=== PATIENT | female | born 1945 | race Caucasian/White ===

== ENCOUNTER → 2017-09-29 | Outpatient (REF) | payer OTHER ==
[2017-09-29 13:13] LABS: BASO # 0.1 10^3/uL (0.0-0.2); EOS # 0.8 10^3/uL (0.0-0.50); EOS % 12.9 % (0.0-3.0); HEMATOCRIT 43.9 % (36.0-47.0); HEMOGLOBIN 13.5 g/dl (12.0-16.0); IMMATURE GRANULOCYTE % 0.3 % (0-0); LYMPH # 2.1 10^3/uL (1.5-4.5); LYMPH % 34.3 % (24.0-44.0); MEAN CORPUSCULAR HEMOGLOBIN 28.1 pg (27.0-33.0); MEAN CORPUSCULAR HGB CONC 30.8 g/dl (32.0-36.5); MEAN CORPUSCULAR VOLUME 91.5 fl (80.0-96.0); MONO # 0.6 10^3/uL (0.0-0.8); MONO % 9.4 % (0.0-5.0); NEUTROPHILS # 2.6 10^3/uL (1.8-7.7); NEUTROPHILS % 42.1 % (36.0-66.0); PLATELET COUNT, AUTOMATED 435 10^3/uL (150-450); RED CELL DISTRIBUTION WIDTH 15.5 % (11.5-14.5); WHITE BLOOD COUNT 6.2 10^3/uL (4.0-10.0)
[2017-09-29 13:37] LABS: ALBUMIN/GLOBULIN RATIO 1.03 (1.00-1.93); ALKALINE PHOSPHATASE 93 U/L (45-117); ALT/SGPT 16 U/L (12-78); ANION GAP 7 MEQ/L (8-16); AST/SGOT 17 U/L (7-37); BILIRUBIN,TOTAL 0.5 MG/DL (0.2-1.0); BLOOD UREA NITROGEN 14 MG/DL (7-18); CALCIUM LEVEL 9.2 MG/DL (8.8-10.2); CARBON DIOXIDE LEVEL 30 MEQ/L (21-32); CHLORIDE LEVEL 104 MEQ/L (98-107); GLOMERULAR FILTRATION RATE > 60.0 (>39); GLUCOSE, FASTING 89 MG/DL (70-100); POTASSIUM SERUM 4.6 MEQ/L (3.5-5.1); SODIUM LEVEL 141 MEQ/L (136-145); TOTAL PROTEIN 7.9 GM/DL (6.4-8.2)
[2017-09-29 13:48] LABS: ESTIMATED AVERAGE GLUCOSE 134 MG/DL (60-110); HEMOGLOBIN A1c 6.3 %
[2017-09-29 14:19] LABS: TOTAL 25(OH) VITAMIN D 14.2 NG/ML (30.0-100.0)
== END ==
LOC: M LAB REF 12:04
DX: Z13.9 Encounter for screening, unspecified (principal)
CPT/HCPCS: 80053

== ENCOUNTER → 2017-11-10 | Outpatient (CLI) | payer OTHER ==
[2017-11-10 14:44] LABS: BASO # 0.1 10^3/uL (0.0-0.2); BASO % 0.7 % (0.0-1.0); EOS # 0.5 10^3/uL (0.0-0.50); HEMATOCRIT 42.1 % (36.0-47.0); IMMATURE GRANULOCYTE % 0.5 % (0-3.0); LYMPH # 1.9 10^3/uL (1.5-4.5); LYMPH % 19.3 % (24.0-44.0); MEAN CORPUSCULAR HEMOGLOBIN 28.9 pg (27.0-33.0); MEAN CORPUSCULAR HGB CONC 30.9 g/dl (32.0-36.5); MEAN CORPUSCULAR VOLUME 93.6 fl (80.0-96.0); MONO # 1.1 10^3/uL (0.0-0.8); MONO % 10.7 % (0.0-5.0); NEUTROPHILS # 6.4 10^3/uL (1.8-7.7); NEUTROPHILS % 63.8 % (36.0-66.0); PLATELET COUNT, AUTOMATED 439 10^3/uL (150-450); RED CELL DISTRIBUTION WIDTH 14.7 % (11.5-14.5)
[2017-11-10 15:01] LABS: ALBUMIN 3.7 GM/DL (3.2-5.2); ALKALINE PHOSPHATASE 116 U/L (45-117); ALT/SGPT 15 U/L (12-78); ANION GAP 7 MEQ/L (8-16); AST/SGOT 15 U/L (7-37); BILIRUBIN,TOTAL 0.3 MG/DL (0.2-1.0); BLOOD UREA NITROGEN 11 MG/DL (7-18); CALCIUM LEVEL 9.1 MG/DL (8.8-10.2); CARBON DIOXIDE LEVEL 32 MEQ/L (21-32); CHLORIDE LEVEL 103 MEQ/L (98-107); CREATININE FOR GFR 0.51 MG/DL (0.55-1.30); GLOMERULAR FILTRATION RATE > 60.0 (>39); GLUCOSE, FASTING 104 MG/DL (70-100); POTASSIUM SERUM 3.9 MEQ/L (3.5-5.1); SODIUM LEVEL 142 MEQ/L (136-145); TOTAL PROTEIN 7.8 GM/DL (6.4-8.2)
[2017-11-10 15:08] LABS: IMMUNOGLOBULIN G 1090 MG/DL (681-1648)
[2017-11-14 08:08] LABS: C001-IGE PENICILLIN G <0.10 kU/L (Class 0); E001-IGE CAT EPITHELIUM/DANDER <0.10 kU/L (Class 0); E003-IGE HORSE EPITHELIA/DAND <0.10 kU/L (Class 0); E004-IGE COW DANDER <0.10 kU/L (Class 0); E005-IGE DOG DANDER/HAIR/EPITH <0.10 kU/L (Class 0); E006-IgE GUINEA PIG EPITHELIUM <0.10 kU/L (Class 0); E070-IGE GOOSE FEATHERS 2.47 kU/L (Class III); E072-IgE Mouse Urine <0.10 kU/L (Class 0); E073-IgE RAT EPITHELIA <0.10 kU/L (Class 0); E081-IgE Sheep Epithelia <0.10 kU/L (Class 0); E082-IgE Rabbit Epithelia <0.10 kU/L (Class 0); G002-IGE BERMUDA GRASS <0.10 kU/L (Class 0); G006-IGE TIMOTHY GRASS <0.10 kU/L (Class 0); G008-IGE BLUEGRASS, KENTUCKY <0.10 kU/L (Class 0); I206-IGE COCKROACH, AMERICAN <0.10 kU/L (Class 0); K083-IgE COTTONSEED <0.10 kU/L (Class 0); M002-IGE CLADOSPORIUM herbarum <0.10 kU/L (Class 0); M003-IGE ASPERGILLUS FUMIGATUS 3.31 kU/L (Class III); M003-IGE D pteronyssinus 0.11 kU/L (Class 0/I); M006-IGE ALTERNARIA alternata <0.10 kU/L (Class 0); M007-IGE BOTRYTIS cinerea <0.10 kU/L (Class 0); M009-IGE FUSARIUM proliferatum <0.10 kU/L (Class 0); M011-IGE RHIZOPUS nigrica <0.10 kU/L (Class 0); M013-IGE PHOMA BETAE 0.18 kU/L (Class 0/I); M014-IGE EPICOCCUM purpur <0.10 kU/L (Class 0); MOO5-IGE CANDIDA albican <0.10 kU/L (Class 0); T001-IGE MAPLE/BOX ELDER <0.10 kU/L (Class 0); T007-IGE OAK, WHITE <0.10 kU/L (Class 0); T008-IGE ELM, AMERICAN WHITE <0.10 kU/L (Class 0); T014-IGE COTTONWOOD <0.10 kU/L (Class 0); W009-IGE PLANTAIN,ENGLISH <0.10 kU/L (Class 0); W010-IGE LAMB'S QUARTER <0.10 kU/L (Class 0); W014-IGE PIGWEED, ROUGH <0.10 kU/L (Class 0); W016-IgE Rough Marshelder <0.10 kU/L (Class 0); W018-IGE SHEEP SORREL <0.10 kU/L (Class 0)
== END ==
LOC: M SMT 09:37
DX: R06.00 Dyspnea, unspecified (principal); J30.0 Vasomotor rhinitis
CPT/HCPCS: 82785

== ENCOUNTER → 2017-11-17 | Outpatient (CLI) | payer OTHER ==
[~2017-11-17] MED LIST: METHACHOLINE KIT (J7674) INH
== END ==
LOC: M CARPUL 08:22
DX: R06.00 Dyspnea, unspecified (principal)
CPT/HCPCS: J7674

== ENCOUNTER → 2018-01-05 | Outpatient (REF) | payer OTHER ==
[2018-01-05 19:46] LABS: TOTAL 25(OH) VITAMIN D 14.8 NG/ML (30.0-100.0)
[2018-01-07 14:16] LABS: TISSUE TRANSGLUTAMINASE IgA <2 U/mL (0-3)
== END ==
LOC: M LAB REF 18:59
DX: K59.00 Constipation, unspecified (principal); E55.9 Vitamin D deficiency, unspecified
CPT/HCPCS: 84443

== ENCOUNTER 2019-04-24 21:11 | Inpatient (IN) | payer MEDICARE, OTHER ==
[~2019-04-24] VITALS: Ht 154.9 cm; Wt 36.6 kg
[2019-04-24] MEDS ORDERED: VENTAER INH (21:30)
[2019-04-24] MEDS ORDERED: methylPREDNISolone INJ 125 MG/2 ML VIAL (J2930) IV ONE (22:00)
[2019-04-24] MEDS ORDERED: NS 1,000 ML IV ONE (22:00)
[2019-04-24] MEDS ORDERED: IPRATROPIUM 0.5MG/ALBUTEROL 2.5MG INH SOL UD 3ML (DUONEB)(J7620) NEB ONE ×2 (22:00→23:15)
[2019-04-24 22:13] LABS: BASO # 0.1 10^3/uL (0.0-0.2); BASO % 0.4 % (0.0-1.0); EOS # 0.6 10^3/uL (0.0-0.50); EOS % 5.2 % (0.0-3.0); HEMOGLOBIN 14.5 g/dl (12.0-15.5); LYMPH # 2.9 10^3/uL (1.5-4.5); LYMPH % 24.1 % (24.0-44.0); MEAN CORPUSCULAR HEMOGLOBIN 29.2 pg (27.0-33.0); MEAN CORPUSCULAR HGB CONC 30.9 g/dl (32.0-36.5); MEAN CORPUSCULAR VOLUME 94.8 fl (80.0-96.0); MONO # 0.9 10^3/uL (0.0-0.8); NEUTROPHILS # 7.3 10^3/uL (1.8-7.7); PLATELET COUNT, AUTOMATED 295 10^3/uL (150-450); RED BLOOD COUNT 4.96 10^6/uL (4.00-5.40); WHITE BLOOD COUNT 11.8 10^3/uL (4.0-10.0)
[2019-04-24 22:39] LABS: ALBUMIN 3.7 GM/DL (3.2-5.2); ALT/SGPT 18 U/L (12-78); BILIRUBIN,DIRECT 0.1 MG/DL (0.0-0.2); BILIRUBIN,TOTAL 0.3 MG/DL (0.2-1.0); BLOOD UREA NITROGEN 19 MG/DL (7-18); CARBON DIOXIDE LEVEL 32 MEQ/L (21-32); CHLORIDE LEVEL 102 MEQ/L (98-107); CK-MB VALUE MASS < 1.0 NG/ML (<3.6); CPK CREATINE PHOSPHOKINASE 41 U/L (26-192); GLOMERULAR FILTRATION RATE > 60.0 (>39); GLUCOSE, FASTING 97 MG/DL (70-100); MB/CK RELATIVE INDEX 2.44 (< OR =4); NT-PRO BNP 168 PG/ML (<125); POTASSIUM SERUM 4.3 MEQ/L (3.5-5.1); SODIUM LEVEL 140 MEQ/L (136-145); TOTAL PROTEIN 7.7 GM/DL (6.4-8.2); TROPONIN I < 0.02 NG/ML (< 0.10)
[2019-04-24] MEDS ORDERED: ALBUTEROL SULFATE 2.5 MG/0.5 ML INH NEB SOLN NEB ONE ×2 (23:00→23:15)
[2019-04-25] MEDS ORDERED: ACETAMINOPHEN TAB 650MG DOSE (2X325MG) PO PRN (01:00)
[2019-04-25] MEDS ORDERED: IPRATROPIUM 0.5MG/ALBUTEROL 2.5MG INH SOL UD 3ML (DUONEB)(J7620) NEB PRN (01:15)
[2019-04-25 02:30] VITALS: BP 121/63
--- NOTE | 2019-04-25 03:38 | HPEPDOC ---
[facility] Medical History & Physical Date of Admission Apr 25, 2019 Date of Service: Apr 25, 2019 History and Physical CHIEF COMPLAINT: [FATIGUE ] HISTORY OF PRESENT ILLNESS: [This is a 73 yo female with pmx of asthma//?COPD ( due to 2nd hand smoking) who presented to the ED for worsening fatigue for the past month. Patient noticed fatigue with minimal exertion. She noted a dry cough and a bit of sob, but denied fever, chills, chest pain, nausea, vomiting , jaw pain or headache. ] PAST MEDICAL HISTORY: 1. [asthma]. PAST SURGICAL HISTORY: 1. [none]. SOCIAL HISTORY: lives with denied hx of smoking, but said she was exposed 2nd smoking by her dad denied using etoh or drugs FAMILY HISTORY: mother was an alcoholic ALLERGIES: Please see below. HOME MEDICATIONS: Please see below. ROS - all 10 point review of system is negative except for whats listed in HPI Physical exam Gen: NAD, healthy appearing , HEENT: normocephalic, atraumatic, no discharge from ears or nose, no oropharyngeal erythema or exudate, neck is supple, no lymphadenopathy, trachea midline CVS: RRR, normal S1n S2, no murmur, rubs, or gallops, no edema, no jvd Resp: b/l wheezes, no rhonchi, or crackles Abd : soft nontender, normal bowel sounds, no rebound tenderness or guarding MSK: no swelling, or deformity, full range of motion, strength 5/5 Neuro: AOAx3, no confusion, no focal deficit Psych: normal mood and affect, good judgment LABORATORY DATA: See below. IMAGING: [cxr - report pending ] MICROBIOLOGY: Please see below. ASSESSMENT and Plan Asthma//?copd exacerbation iv methylprednisolone 40mg q8h oxygen as needed duoneb prn echo symbicort bid dvt ppx Gi ppx while on steroid full code , from home Vital Signs Vital Signs Date Time Temp Pulse Resp B/P (MAP) Pulse Ox O2 Delivery O2 Flow Rate FiO2 04/24/19 23:51 101 18 142/64 (90) 92 Nasal Cannula 3.0 04/24/19 21:12 99.3 Laboratory Data Labs 24H Laboratory Tests 2 04/24/19 22:02: Immature Granulocyte % (Auto) 0.3, White Blood Count 11.8H, Red Blood Count 4.96, Hemoglobin 14.5, Hematocrit 47.0, Mean Corpuscular Volume 94.8, Mean Corpuscular Hemoglobin 29.2, Mean Corpuscular Hemoglobin Concent 30.9L, Red Cell Distribution Width 14.6H, Platelet Count 295, Neutrophils (%) (Auto) 62.0, Lymphocytes (%) (Auto) 24.1, Monocytes (%) (Auto) 8.0H, Eosinophils (%) (Auto) 5.2H, Basophils (%) (Auto) 0.4, Neutrophils # (Auto) 7.3, Lymphocytes # (Auto) 2.9, Monocytes # (Auto) 0.9H, Eosinophils # (Auto) 0.6H, Basophils # (Auto) 0.1, Nucleated Red Blood Cells % (auto) 0.0, Anion Gap 6L, Glomerular Filtration Rate > 60.0, Lactic Acid Level 0.9, Calcium Level 9.0, Aspartate Amino Transf (AST/SGOT) 12, Alanine Aminotransferase (ALT/SGPT) 18, Alkaline Phosphatase 106, Total Bilirubin 0.3, Direct Bilirubin 0.1, Total Creatine Kinase 41, Creatine Kinase MB < 1.0, Creatine Kinase MB Relative Index 2.44, Troponin I < 0.02, FU-Wyf-Q-Type Natriuretic Peptide 168H, Total Protein 7.7, Albumin 3.7, Albumin/Globulin Ratio 0.93L 04/24/19 23:22: POC pH (Misc Panel) 7.273L, POC Base Excess (Misc Panel) -2.0, POC Saturated Percent O2 (Misc) 98, POC pO2 (Misc Panel) 124.0H, POC pCO2 (Misc Panel) 53.2H, POC HCO3 (Misc Panel) 24.6, POC Total CO2 (Misc Panel) 26.0 CBC/BMP Laboratory Tests 04/24/19 22:02 Red Blood Count 4.96, Mean Corpuscular Volume 94.8, Mean Corpuscular Hemoglobin 29.2, Mean Corpuscular Hemoglobin Concent 30.9 L, Red Cell Distribution Width 14.6 H, Neutrophils (%) (Auto) 62.0, Lymphocytes (%) (Auto) 24.1, Monocytes (%) (Auto) 8.0 H, Eosinophils (%) (Auto) 5.2 H, Basophils (%) (Auto) 0.4, Neutrophils # (Auto) 7.3, Lymphocytes # (Auto) 2.9, Monocytes # (Auto) 0.9 H, Eosinophils # (Auto) 0.6 H, Basophils # (Auto) 0.1 Home Medications Scheduled PRN Albuterol Sulfate (Ventolin Hfa) 18 Gm Hfa.aer.ad, 2 PUFF INH Q4-6H PRN for wheezing Allergies Coded Allergies: Penicillins (Verified Allergy, Severe, SHORTNESS OF BREATH, 04/24/19) Quinolones (Verified Allergy, Mild, RASH, 04/24/19) A-FIB/CHADSVASC A-FIB History Current/History of A-Fib/PAF?: No Current PO Anticoag Therapy: No Age/Risk Factor Scoring CHADSVASC: CHADSVASC Response (Comments) Value Age Risk Factor Age 65-74 years old 1 Gender Risk Factor Female 1 Hx of CHF No 0 Hx of HTN No 0 Hx of Stroke/TIA/or VTE No 0 Hx of Diabetes No 0 Hx of Vascular Disease No 0 Total 2 Treatment Treatment ordered: NONE Reason Anticoagulant not given: Not indicated/[id number] JACOB HUTCHINS MD Apr 25, 2019 01:41
[2019-04-25 04:00] VITALS: BP 111/60
[2019-04-25] MEDS: HEPARIN SOD (PORCINE) 5000 UNITS/ML VIAL SC SCH ×3 (05:47→21:45)
[2019-04-25] MEDS: methylPREDNISolone INJ 40 MG/1 ML VIAL (J2920) IV SCH ×3 (05:47→21:45)
[2019-04-25] MEDS: SYMBICORT 80/4.5MCG INHALER 6GM INH SCH ×2 (07:11→19:59)
--- NOTE | 2019-04-25 07:19 | ECGEPIP ---
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
[2019-04-25 07:43] LABS: HEMATOCRIT 42.7 % (36.0-47.0); MEAN CORPUSCULAR HGB CONC 30.4 g/dl (32.0-36.5); MEAN CORPUSCULAR VOLUME 95.1 fl (80.0-96.0); PLATELET COUNT, AUTOMATED 278 10^3/uL (150-450); RED BLOOD COUNT 4.49 10^6/uL (4.00-5.40); WHITE BLOOD COUNT 7.5 10^3/uL (4.0-10.0)
[2019-04-25 07:48] LABS: BLOOD UREA NITROGEN 13 MG/DL (7-18); CALCIUM LEVEL 8.3 MG/DL (8.8-10.2); CARBON DIOXIDE LEVEL 30 MEQ/L (21-32); CHLORIDE LEVEL 108 MEQ/L (98-107); CREATININE FOR GFR 0.55 MG/DL (0.55-1.30); GLOMERULAR FILTRATION RATE > 60.0 (>39); GLUCOSE, FASTING 178 MG/DL (70-100); MAGNESIUM LEVEL 1.9 MG/DL (1.8-2.4); SODIUM LEVEL 141 MEQ/L (136-145)
[2019-04-25 08:00] VITALS: BP 109/59
[2019-04-25] MEDS: DOCUSATE SODIUM 100 MG CAP PO SCH ×2 (09:00→21:45)
--- NOTE | 2019-04-25 10:51 | REP ---
PA and lateral chest: Comparison is 11/10/2017. There is chronic hyperinflation, unchanged. There is chronic interstitial fibrosis, unchanged. These findings are compatible with the history of chronic asthma. There are no acute infiltrates or pleural effusions. There are bilateral nipple artifacts, unchanged. Cardiac size is normal. The dae, mediastinum, skeletal structures are unremarkable. Impression: There are chronic changes compatible with the history of chronic asthma. There are no acute cardiopulmonary findings. Electronically Signed by Carson Hadley MD 04/25/2019 07:58 A
--- NOTE | 2019-04-25 11:52 | IPN ---
DATE OF SERVICE: 04/25/2019 Oneyda is seen in progressive care unit (PCU) admitted with exacerbation of chronic obstructive pulmonary disease (COPD). Apparently does not have a primary care provider (used to go to the residency clinic. The last visit there was 5 years ago in 06/2014. She looks to have severe chronic obstructive pulmonary disease (COPD) with asthma, has history of osteoporosis and DEXA scan from 07/13 which she never got repeated, hiatal hernia. SURGICAL HISTORY: Tubal ligation. Hysterectomy. Cholecystectomy. SOCIAL HISTORY: Nonsmoker. She feels better since admission, less short of breath, near her baseline. PHYSICAL EXAMINATION: Afebrile. Vital signs stable. Oxygen saturation 93% on 1 liter. General appearance: Chronically ill-appearing. No jugular venous distention (JVD). Lungs have decreased breath sounds bilaterally but no wheezing. Heart: Regular rate and rhythm. Abdomen soft, nontender, no peripheral edema. LABS: CBC unremarkable. BMP unremarkable. IMPRESSION: Exacerbation of asthma. PLAN: She is responding well to prescribed therapy. I do not think she needs to be in PCU. I will transfer her to the floor. Will wean off her oxygen. She probably could be discharged tomorrow.
[2019-04-25 12:00] VITALS: BP 110/59
[2019-04-25 16:00] VITALS: BP 110/58
[2019-04-25 20:00] VITALS: BP 110/59
[2019-04-26 04:00] VITALS: BP 96/57
[2019-04-26] MEDS: methylPREDNISolone INJ 40 MG/1 ML VIAL (J2920) IV SCH (06:22)
[2019-04-26] MEDS: HEPARIN SOD (PORCINE) 5000 UNITS/ML VIAL SC SCH (06:22)
[2019-04-26] MEDS: SYMBICORT 80/4.5MCG INHALER 6GM INH SCH (07:39)
[2019-04-26 08:00] VITALS: BP 110/55
[2019-04-26] MEDS: DOCUSATE SODIUM 100 MG CAP PO SCH (09:08)
[2019-04-26] MEDS ORDERED: SYMB80INH INH (11:10)
[2019-04-26] MEDS ORDERED: PRED20TA PO (11:10)
--- NOTE | 2019-04-26 13:33 | DS.PDOC ---
Discharge Summary General Date of Admission Apr 25, 2019 at 01:00 Date of Discharge 04/26/19 Discharge Summary PROCEDURES PERFORMED DURING STAY: None. ADMITTING DIAGNOSES: 1. Exacerbation of COPD. DISCHARGE DIAGNOSES: 1. Exacerbation of COPD. COMPLICATIONS/CHIEF COMPLAINT: Copd Exacerbation;Hypoxia. HISTORY OF PRESENT ILLNESS: This is a 73 yo female with pmx of asthma//?COPD (due to 2nd hand smoking) who presented to the ED for worsening fatigue for the past month. Patient noticed fatigue with minimal exertion. She noted a dry cough and a bit of sob, but denied fever, chills, chest pain, nausea, vomiting , jaw pain or headache. HOSPITAL COURSE: Patient was admitted with the diagnosis of exacerbation of the COPD. Patient was started on nebulizer treatment along with Solu-Medrol IV. Patient was also given oxygen supplementation. Patient responded to's to the above treatment very well. On examination today, lungs are clear to A&P. No rales, rhonchi, wheezing. Patient also walked around the unit without oxygen and her pulse ox remained more than 90%. Patient can be discharged home on by mouth prednisone and continue her nebulizer treatment as an outpatient. Patient was advised to follow with her PCP in one week. DISCHARGE MEDICATIONS: Please see below. ALLERGIES: Please see below. PHYSICAL EXAMINATION ON DISCHARGE: VITAL SIGNS: Please see below. GENERAL: Within normal limits HEENT: PERRLA NECK: Supple CARDIOVASCULAR EXAMINATION: S1, S2, regular RESPIRATORY EXAMINATION: Clear to A&P ABDOMINAL EXAMINATION: Benign EXTREMITIES: No clubbing, cyanosis, edema SKIN: Within normal limits NEUROLOGICAL EXAMINATION: . No focal motor sensory deficit PSYCHIATRIC EXAMINATION: Normal LABORATORY DATA: Please see below. IMAGING: Chest x-ray:There are chronic changes compatible with the history of ch ronic asthma. There are no acute cardiopulmonary findings. PROGNOSIS: Good ACTIVITY: As tolerated. DIET: As tolerated DISCHARGE PLAN: Follow with PCP in one week DISPOSITION: Home, Self-Care. DISCHARGE INSTRUCTIONS: 1. As per discharge instructions. ITEMS TO FOLLOWUP ON ON OUTPATIENT: 1. Follow with PCP in one week. DISCHARGE CONDITION: Stable. TIME SPENT ON DISCHARGE: 35 minutes. Vital Signs/I&Os Vital Signs Date Time Temp Pulse Resp B/P (MAP) Pulse Ox O2 Delivery O2 Flow Rate FiO2 04/26/19 08:00 97.6 91 20 110/55 (73) 96 1.0 04/24/19 23:51 Nasal Cannula I&O- Last 24 Hours up to 6 AM 04/26/19 05:59 Intake Total 1120 ml Output Total 1400 ml Balance -280 ml Microbiology Microbiology 04/26/19 Gram Stain - Final, Resulted 04/26/19 Sputum Culture, Resulted Pending Discharge Medications Scheduled Budesonide/Formoterol (Symbicort 80-4.5 Mcg Inhaler) 6.9 Gm Hfa.aer.ad, 2 PUFF INH RBID Prednisone (Prednisone) 20 Mg Tablet, 1 TAB PO DAILY Scheduled PRN Albuterol Sulfate (Ventolin Hfa) 18 Gm Hfa.aer.ad, 2 PUFF INH Q4-6H PRN for wheezing, (Reported) Allergies Coded Allergies: Penicillins (Verified Allergy, Severe, SHORTNESS OF BREATH, 04/24/19) Quinolones (Verified Allergy, Mild, RASH, 04/24/19) VASQUEZ HUI MD Apr 26, 2019 13:33
[2019-04-26] MEDS ORDERED: ALBU83IN NEB (13:41)
--- NOTE | 2019-04-27 06:57 | ECHO ---
DATE OF PROCEDURE: 04/26/2019 DATE OF : 1945 AGE: 73 GENDER: Female. HEIGHT: 61 inches. WEIGHT: 92 pounds. BODY SURFACE AREA: 1.29 meters squared LOCATION: Inpatient PCU, room 3219. REFERRING PHYSICIAN: Merry Liang MD INDICATION: Dyspnea. MEASUREMENTS 2-D MEASUREMENTS: RV - 3.6 cm LV - 4.3 cm Septum 0.7 cm Posterior wall 0.7 cm Aortic root 3.5 cm LA - 2.9 cm LVEF 65% DOPPLER MEASUREMENTS: AV - 1.8 m/s LVOT - 0.8 m/s LVOT - 2.0 cm MV - 90, A 47, E/E ratio 1.9 Early mitral deceleration time 144 ms E prime 8, A prime 11, E/E prime ratio 11.3 PCWP - 13.8 mmHg PV - 0.8 m/s Pulmonary artery acceleration time 90 ms PASP - 41 mmHg IVC - 2.1 cm COMMENTS: Sinus rhythm without intraventricular conduction disturbance. Technically difficult study in light of the patient's body habitus but diagnostically useful information was still obtained. M-mode and two-dimensional echocardiography was performed with pulsed, continuous wave, color flow and tissue Doppler studies. Normal left ventricular size, wall thickness and hyperkinetic wall motion. Normal left atrial size and Doppler assessment of LV diastolic function and current estimated mean left atrial pressure. Normal right heart chamber sizes and motion with Doppler evidence of moderate pulmonary hypertension. Borderline dilated inferior vena cava with reduced respiratory collapse suggestive an elevated central venous pressure. Mild aortic valvular sclerosis without stenosis and very mild insufficiency. Aortic root size at least mildly dilated given the patient's body habitus. Normal appearing mitral valvular apparatus and leaflet excursion with no more than very mild insufficiency. Normal appearing tricuspid valve with mild insufficiency. No apparent intracardiac mass or pericardial effusion.
== END 2019-04-26 13:05 | disposition home or self-care (01) | DRG 192 ==
LOC: M ED 21:11 → M ED INP 04-25 01:00 → M PCU 04-25 02:25
PROVIDERS: ADMIT Internal Medicine; ATTEND Internal Medicine
DX: J44.1 Chronic obstructive pulmonary disease with (acute) exacerbation (principal); Z88.0 Allergy status to penicillin; Z88.8 Allergy status to other drugs, medicaments and biological substances; M81.0 Age-related osteoporosis without current pathological fracture; K44.9 Diaphragmatic hernia without obstruction or gangrene

== ENCOUNTER 2023-10-30 18:24 | Inpatient (IN) | payer MEDICARE ==
[~2023-10-30] VITALS: Ht 147.3 cm; Wt 36.7 kg
[~2023-10-30 18:24] MED LIST changes: +ALBU2.5V10 NEB; -METHACHOLINE KIT (J7674) INH; +PRED20TA PO; +SYMB80INH INH; +VENTAER INH
[2023-10-30 19:15] LABS: BASO # 0.1 10^3/uL (0.0-0.2); BASO % 0.5 % (0.0-1.0); EOS # 0.1 10^3/uL (0.0-0.5); EOS % 0.7 % (0.0-3.0); HEMATOCRIT 60.7 % (36.0-47.0); HEMOGLOBIN 18.6 g/dl (12.0-15.5); LYMPH % 9.7 % (24.0-44.0); MEAN CORPUSCULAR HEMOGLOBIN 30.4 pg (27.0-33.0); MEAN CORPUSCULAR HGB CONC 30.6 g/dl (32.0-36.5); MEAN CORPUSCULAR VOLUME 99.2 fl (80.0-96.0); MONO # 0.8 10^3/uL (0.0-0.8); MONO % 7.6 % (2.0-8.0); NEUTROPHILS # 8.3 10^3/uL (1.5-8.5); NEUTROPHILS % 80.8 % (36.0-66.0); PLATELET COUNT, AUTOMATED 252 10^3/uL (150-450); RED BLOOD COUNT 6.12 10^6/uL (4.00-5.40); WHITE BLOOD COUNT 10.3 10^3/uL (4.0-10.0)
[2023-10-30 19:16] LABS: ABG BASE EXCESS 4.4 (-2.0-2.0); ABG HCO3 33.4 MMOL/L (22.0-26.0); ABG O2 SATURATION 95.9 % (95.0-99.0); ABG PARTIAL PRESSURE O2 84.9 mmHg (75.0-100.0); ABG STANDARD HCO3 28.3 MMOL/L. (22.0-26.0); ABG TOTAL CO2 35.4 MMOL/L (23.0-31.0); ABG pH (ARTERIAL) 7.325 UNITS (7.350-7.450)
[2023-10-30 19:20] LABS: ABG PARTIAL PRESSURE CO2 65.6 mmHg (35.0-45.0)
[2023-10-30 19:28] LABS: INR 1.06; PROTHROMBIN TIME 13.5 SECONDS (12.5-14.5)
[2023-10-30 19:42] LABS: ALBUMIN 3.4 G/DL (3.2-5.2); ALKALINE PHOSPHATASE 100 U/L (46-116); ALT/SGPT 23 U/L (7.0-40); AST/SGOT 21 U/L (<34); BILIRUBIN,DIRECT 0.2 MG/DL (<0.4); BILIRUBIN,TOTAL 0.8 MG/DL (0.3-1.2); BLOOD UREA NITROGEN 16 MG/DL (9-23); CALCIUM LEVEL 8.9 MG/DL (8.3-10.6); CARBON DIOXIDE LEVEL 36 MMOL/L (20-31); CHLORIDE LEVEL 102 MMOL/L (98-107); GLOMERULAR FILTRATION RATE > 60.0 (>39); GLUCOSE, FASTING 130 MG/DL (74-106); POTASSIUM SERUM 4.3 MMOL/L (3.5-5.1); SODIUM LEVEL 141 MMOL/L (136-145); TOTAL PROTEIN 6.7 G/DL (5.7-8.2)
[2023-10-30 19:45] LABS: THYROID STIMULATING HORMONE 5.657 uIU/ML (0.55-4.78)
[2023-10-30 19:46] LABS: CPK CREATINE PHOSPHOKINASE 65 U/L (34-145); MB/CK RELATIVE INDEX 4.61 (< OR =4)
[2023-10-30] MEDS ORDERED: ISOVUE-370 76% 100ML VIAL As Ordered ONE (19:54)
[2023-10-30] MEDS: IPRATROPIUM 0.5MG/ALBUTEROL 2.5MG INH SOL UD 3ML (DUONEB) NEB ONE (20:11)
[2023-10-30] MEDS ORDERED: HOME MED LIST COMPLETE! XX SCH (23:40)
[2023-10-31] VITALS (24 sets, daily range): BP systolic 120–136; BP diastolic 68–80; TEMP 97.1–98.3; O2SAT 77–95
[2023-10-31] MEDS: methylPREDNISolone 125MG 2ML VIAL IV ONE (00:01)
[2023-10-31] MEDS ORDERED: ALBUTEROL SULFATE 2.5MG/0.5ML INH NEB SOLN NEB PRN (01:15)
[2023-10-31] MEDS ORDERED: ONDANSETRON 4MG ORAL DISINTEGRATING TAB PO PRN (01:15)
[2023-10-31] MEDS: IPRATROPIUM 0.5MG/ALBUTEROL 2.5MG INH SOL UD 3ML (DUONEB) NEB SCH (02:37)
[2023-10-31] MEDS: NS 500 ML IV ONE (02:43)
[2023-10-31] MEDS: DOXYCYCLINE HYCLATE 100MG TABLET PO ONE (02:43)
[2023-10-31 05:58] LABS: ABG BASE EXCESS 2.6 (-2.0-2.0); ABG HCO3 31.3 MMOL/L (22.0-26.0); ABG O2 SATURATION 94.3 % (95.0-99.0); ABG PARTIAL PRESSURE O2 70.6 mmHg (75.0-100.0); ABG STANDARD HCO3 26.6 MMOL/L. (22.0-26.0); ABG TOTAL CO2 33.2 MMOL/L (23.0-31.0); ABG pH (ARTERIAL) 7.313 UNITS (7.350-7.450)
[2023-10-31 06:03] LABS: ABG PARTIAL PRESSURE CO2 63.1 mmHg (35.0-45.0)
[2023-10-31 06:46] LABS: BLOOD UREA NITROGEN 12 MG/DL (9-23); CALCIUM LEVEL 8.8 MG/DL (8.3-10.6); CARBON DIOXIDE LEVEL 33 MMOL/L (20-31); CHLORIDE LEVEL 103 MMOL/L (98-107); CREATININE FOR GFR 0.38 MG/DL (0.55-1.30); GLOMERULAR FILTRATION RATE > 60.0 (>39); GLUCOSE, FASTING 162 MG/DL (74-106); POTASSIUM SERUM 4.3 MMOL/L (3.5-5.1); SODIUM LEVEL 141 MMOL/L (136-145)
[2023-10-31 06:47] LABS: FREE T4 0.94 NG/DL (0.89-1.76)
[2023-10-31 06:48] LABS: URIC ACID 4.2 MG/DL (3.1-7.8)
[2023-10-31 06:53] LABS: HEMOGLOBIN 18.3 g/dl (12.0-15.5)
[2023-10-31 06:54] LABS: HEMATOCRIT 58.9 % (36.0-47.0)
[2023-10-31] MEDS: methylPREDNISolone 40MG 1ML VIAL IV SCH (08:32)
[2023-10-31] MEDS: HEPARIN SOD (PORCINE) 5000UNITS/ML 1ML VIAL/SYRINGE SC SCH (08:33)
[2023-10-31] MEDS: DOXYCYCLINE HYCLATE 100MG TABLET PO SCH (21:53)
[2023-11-01] VITALS (22 sets, daily range): BP systolic 90–134; BP diastolic 55–80; TEMP 97.6–98.5; O2SAT 85–99
[2023-11-01 01:10] LABS: ABG BASE EXCESS 2.3 (-2.0-2.0); ABG HCO3 32.3 MMOL/L (22.0-26.0); ABG O2 SATURATION 96.6 % (95.0-99.0); ABG PARTIAL PRESSURE O2 91.9 mmHg (75.0-100.0); ABG STANDARD HCO3 26.5 MMOL/L. (22.0-26.0); ABG TOTAL CO2 34.5 MMOL/L (23.0-31.0)
[2023-11-01 01:14] LABS: ABG PARTIAL PRESSURE CO2 73.6 mmHg (35.0-45.0)
[2023-11-01 03:20] LABS: ABG BASE EXCESS 5.9 (-2.0-2.0); ABG HCO3 38.3 MMOL/L (22.0-26.0); ABG O2 SATURATION 98.8 % (95.0-99.0); ABG PARTIAL PRESSURE O2 155.8 mmHg (75.0-100.0); ABG STANDARD HCO3 29.9 MMOL/L. (22.0-26.0); ABG TOTAL CO2 41.3 MMOL/L (23.0-31.0); ABG pH (ARTERIAL) 7.221 UNITS (7.350-7.450)
[2023-11-01 03:21] LABS: ABG PARTIAL PRESSURE CO2 95.6 mmHg (35.0-45.0)
[2023-11-01 05:50] LABS: ABG BASE EXCESS 3.6 (-2.0-2.0); ABG HCO3 34.2 MMOL/L (22.0-26.0); ABG O2 SATURATION 97.8 % (95.0-99.0); ABG STANDARD HCO3 27.7 MMOL/L. (22.0-26.0); ABG TOTAL CO2 36.6 MMOL/L (23.0-31.0); ABG pH (ARTERIAL) 7.252 UNITS (7.350-7.450)
[2023-11-01 05:52] LABS: ABG PARTIAL PRESSURE CO2 79.3 mmHg (35.0-45.0)
[2023-11-01 12:38] LABS: VENOUS BASE EXCESS 4.7 (-2.0-2.0); VENOUS HCO3 32.7 MMOL/L (23.0-27.0); VENOUS O2 SATURATION 99.3 % (60.0-80.0); VENOUS PARTIAL PRESSURE CO2 60.2 mmHg (38.0-50.0); VENOUS PARTIAL PRESSURE O2 191.8 mmHg (30.0-50.0); VENOUS PH 7.353 UNITS (7.330-7.430); VENOUS STANDARD HCO3 28.7 MMOL/L; VENOUS TOTAL CO2 34.6 MMOL/L (24.0-28.0)
[2023-11-01] MEDS: FUROSEMIDE 20MG/2ML VIAL IV ONE (12:52)
[2023-11-02] VITALS (15 sets, daily range): BP systolic 117–130; BP diastolic 60–76; TEMP 97.6–99.2; O2SAT 92–98
[2023-11-02] MEDS: ACETAMINOPHEN TAB 650MG DOSE (2X325MG) PO PRN (08:23)
[2023-11-02 09:08] LABS: BASO % 0.1 % (0.0-1.0); HEMATOCRIT 55.5 % (36.0-47.0); HEMOGLOBIN 16.7 g/dl (12.0-15.5); LYMPH # 0.4 10^3/uL (1.5-5.0); MEAN CORPUSCULAR HEMOGLOBIN 30.3 pg (27.0-33.0); MEAN CORPUSCULAR HGB CONC 30.1 g/dl (32.0-36.5); MEAN CORPUSCULAR VOLUME 100.7 fl (80.0-96.0); MONO # 0.5 10^3/uL (0.0-0.8); MONO % 5.9 % (2.0-8.0); NEUTROPHILS # 8.2 10^3/uL (1.5-8.5); NEUTROPHILS % 89.3 % (36.0-66.0); PLATELET COUNT, AUTOMATED 198 10^3/uL (150-450); RED BLOOD COUNT 5.51 10^6/uL (4.00-5.40); WHITE BLOOD COUNT 9.2 10^3/uL (4.0-10.0)
[2023-11-02 09:25] LABS: BLOOD UREA NITROGEN 28 MG/DL (9-23); CALCIUM LEVEL 8.2 MG/DL (8.3-10.6); CARBON DIOXIDE LEVEL > 40.0 MMOL/L (20-31); CHLORIDE LEVEL 101 MMOL/L (98-107); CREATININE FOR GFR 0.45 MG/DL (0.55-1.30); GLOMERULAR FILTRATION RATE > 60.0 (>39); GLUCOSE, FASTING 146 MG/DL (74-106); MAGNESIUM LEVEL 1.8 MG/DL (1.8-2.4); POTASSIUM SERUM 4.4 MMOL/L (3.5-5.1); SODIUM LEVEL 143 MMOL/L (136-145)
[2023-11-02] MEDS: PERCOCET 5MG/325MG TAB PO PRN (21:08)
[2023-11-03] VITALS (11 sets, daily range): BP systolic 102–129; BP diastolic 56–73; TEMP 97.3–99.6; O2SAT 93–98
[2023-11-03] MEDS ORDERED: HALOPERIDOL 5MG/ML 1ML VIAL As Ordered ONE (00:12)
[2023-11-03] MEDS: HALOPERIDOL 5MG/ML 1ML VIAL IM STA (00:24)
[2023-11-03 07:39] LABS: BASO % 0.1 % (0.0-1.0); HEMATOCRIT 58.7 % (36.0-47.0); HEMOGLOBIN 17.4 g/dl (12.0-15.5); LYMPH # 0.4 10^3/uL (1.5-5.0); LYMPH % 5.7 % (24.0-44.0); MEAN CORPUSCULAR HEMOGLOBIN 30.1 pg (27.0-33.0); MEAN CORPUSCULAR HGB CONC 29.6 g/dl (32.0-36.5); MEAN CORPUSCULAR VOLUME 101.4 fl (80.0-96.0); MONO # 0.4 10^3/uL (0.0-0.8); MONO % 6.3 % (2.0-8.0); NEUTROPHILS # 5.9 10^3/uL (1.5-8.5); NEUTROPHILS % 87.3 % (36.0-66.0); PLATELET COUNT, AUTOMATED 181 10^3/uL (150-450); RED BLOOD COUNT 5.79 10^6/uL (4.00-5.40); WHITE BLOOD COUNT 6.7 10^3/uL (4.0-10.0)
[2023-11-03 07:53] LABS: BLOOD UREA NITROGEN 27 MG/DL (9-23); CALCIUM LEVEL 7.9 MG/DL (8.3-10.6); CARBON DIOXIDE LEVEL 34 MMOL/L (20-31); CHLORIDE LEVEL 101 MMOL/L (98-107); CREATININE FOR GFR 0.35 MG/DL (0.55-1.30); GLOMERULAR FILTRATION RATE > 60.0 (>39); GLUCOSE, FASTING 129 MG/DL (74-106); MAGNESIUM LEVEL 1.8 MG/DL (1.8-2.4); SODIUM LEVEL 141 MMOL/L (136-145)
[2023-11-04] VITALS (11 sets, daily range): BP systolic 114–136; BP diastolic 61–77; TEMP 97.9–98.7; O2SAT 90–100
[2023-11-04 06:26] LABS: BLOOD UREA NITROGEN 24 MG/DL (9-23); CALCIUM LEVEL 7.9 MG/DL (8.3-10.6); CARBON DIOXIDE LEVEL > 40.0 MMOL/L (20-31); CHLORIDE LEVEL 98 MMOL/L (98-107); CREATININE FOR GFR 0.42 MG/DL (0.55-1.30); GLOMERULAR FILTRATION RATE > 60.0 (>39); GLUCOSE, FASTING 82 MG/DL (74-106); MAGNESIUM LEVEL 1.7 MG/DL (1.8-2.4); POTASSIUM SERUM 4.3 MMOL/L (3.5-5.1); SODIUM LEVEL 141 MMOL/L (136-145)
[2023-11-04] MEDS: MAG SULF 1GM/100ML (MAG RUN) 1 GM in IV 1 EA IV SCH (09:04)
[2023-11-04] MEDS: predniSONE 20 MG TAB PO SCH (09:05)
[2023-11-04] MEDS ORDERED: FUROSEMIDE 40MG/4ML VIAL IV ONE (17:20)
[2023-11-05 04:04] VITALS: BP 131/78; TEMP 98.2; O2SAT 93
[2023-11-05 05:34] LABS: HEMOGLOBIN 16.3 g/dl (12.0-15.5); MEAN CORPUSCULAR HEMOGLOBIN 30.2 pg (27.0-33.0); MEAN CORPUSCULAR HGB CONC 30.2 g/dl (32.0-36.5); MEAN CORPUSCULAR VOLUME 100.2 fl (80.0-96.0); PLATELET COUNT, AUTOMATED 165 10^3/uL (150-450); RED BLOOD COUNT 5.39 10^6/uL (4.00-5.40); WHITE BLOOD COUNT 6.7 10^3/uL (4.0-10.0)
[2023-11-05 06:05] LABS: BLOOD UREA NITROGEN 20 MG/DL (9-23); CALCIUM LEVEL 7.8 MG/DL (8.3-10.6); CARBON DIOXIDE LEVEL > 40.0 MMOL/L (20-31); CHLORIDE LEVEL 96 MMOL/L (98-107); CREATININE FOR GFR 0.33 MG/DL (0.55-1.30); GLOMERULAR FILTRATION RATE > 60.0 (>39); GLUCOSE, FASTING 86 MG/DL (74-106); POTASSIUM SERUM 4.4 MMOL/L (3.5-5.1); SODIUM LEVEL 139 MMOL/L (136-145)
[2023-11-05 08:00] VITALS: BP 121/72; TEMP 98; O2SAT 3
[2023-11-05 12:00] VITALS: BP 127/73; TEMP 96.2; O2SAT 95
[2023-11-05 16:00] VITALS: BP 127/70; TEMP 98; O2SAT 98
[2023-11-05 19:59] VITALS: BP 125/70; TEMP 98.2; O2SAT 97
[2023-11-05 23:56] VITALS: BP 127/71; TEMP 98.1; O2SAT 98
[2023-11-06 03:50] VITALS: BP 133/66; TEMP 97.8; O2SAT 98
[2023-11-06 08:00] VITALS: BP 114/58; TEMP 98.6; O2SAT 90
[2023-11-06 12:00] VITALS: BP 123/76; TEMP 98.6; O2SAT 100
[2023-11-06 16:30] VITALS: BP 136/80; TEMP 99.2; O2SAT 95
[2023-11-06 18:45] VITALS: BP 124/75; TEMP 98.6; O2SAT 97
[2023-11-07 01:23] VITALS: BP 150/74; TEMP 98.1; O2SAT 97
[2023-11-07 05:49] VITALS: BP 131/68; TEMP 97.9; O2SAT 98
[2023-11-07 08:38] LABS: BLOOD UREA NITROGEN 18 MG/DL (9-23); CALCIUM LEVEL 8.4 MG/DL (8.3-10.6); CARBON DIOXIDE LEVEL 36 MMOL/L (20-31); CHLORIDE LEVEL 100 MMOL/L (98-107); CREATININE FOR GFR 0.35 MG/DL (0.55-1.30); GLOMERULAR FILTRATION RATE > 60.0 (>39); GLUCOSE, FASTING 110 MG/DL (74-106); POTASSIUM SERUM 5.1 MMOL/L (3.5-5.1); SODIUM LEVEL 140 MMOL/L (136-145)
[2023-11-07] MEDS ORDERED: ALBU8.5H INH (10:09)
[2023-11-07] MEDS ORDERED: LASI20TA3 PO (10:09)
== END 2023-11-07 12:51 | disposition home health service (06) | DRG 562 ==
LOC: M ED 18:24 → M ED INP 10-31 01:15 → M PCU 10-31 06:33 → M ICU 11-01 01:42 → M PCU 11-03 23:55 → M MSPAV 11-06 18:42
PROVIDERS: ADMIT Internal Medicine; ATTEND Internal Medicine
DX: S42.202A Unspecified fracture of upper end of left humerus, initial encounter for closed fracture (principal); I50.33 Acute on chronic diastolic (congestive) heart failure; J96.21 Acute and chronic respiratory failure with hypoxia; J96.22 Acute and chronic respiratory failure with hypercapnia; J98.11 Atelectasis; J90 Pleural effusion, not elsewhere classified; J84.9 Interstitial pulmonary disease, unspecified; E46 Unspecified protein-calorie malnutrition; Z68.1 Body mass index [BMI] 19.9 or less, adult; E87.3 Alkalosis; I27.20 Pulmonary hypertension, unspecified; F03.C0 Unspecified dementia, severe, without behavioral disturbance, psychotic disturbance, mood disturbance, and anxiety; J45.909 Unspecified asthma, uncomplicated; I27.81 Cor pulmonale (chronic); D75.1 Secondary polycythemia; M40.204 Unspecified kyphosis, thoracic region; R91.8 Other nonspecific abnormal finding of lung field; R13.10 Dysphagia, unspecified; Z88.0 Allergy status to penicillin; Z88.8 Allergy status to other drugs, medicaments and biological substances; W18.30XA Fall on same level, unspecified, initial encounter; Y92.009 Unspecified place in unspecified non-institutional (private) residence as the place of occurrence of the external cause

== ENCOUNTER 2023-11-08 21:05 | Inpatient (IN) | payer MEDICARE ==
[~2023-11-08] VITALS: Ht 147.3 cm; Wt 32.6 kg
[~2023-11-08 21:05] MED LIST changes: +ALBU8.5H INH; +LASI20TA3 PO
[2023-11-08] MEDS: IPRATROPIUM 0.5MG/ALBUTEROL 2.5MG INH SOL UD 3ML (DUONEB) NEB PRN (21:27)
[2023-11-08 21:37] LABS: ABG BASE EXCESS 7.2 (-2.0-2.0); ABG HCO3 43.2 MMOL/L (22.0-26.0); ABG O2 SATURATION 94.3 % (95.0-99.0); ABG PARTIAL PRESSURE O2 81.2 mmHg (75.0-100.0); ABG TOTAL CO2 47.1 MMOL/L (23.0-31.0); ABG pH (ARTERIAL) 7.153 UNITS (7.350-7.450)
[2023-11-08 22:53] LABS: VENOUS BASE EXCESS 3.9 (-2.0-2.0); VENOUS HCO3 38.1 MMOL/L (23.0-27.0); VENOUS O2 SATURATION 98.9 % (60.0-80.0); VENOUS PARTIAL PRESSURE CO2 104.2 mmHg (38.0-50.0); VENOUS PARTIAL PRESSURE O2 181.9 mmHg (30.0-50.0); VENOUS PH 7.181 UNITS (7.330-7.430); VENOUS TOTAL CO2 41.3 MMOL/L (24.0-28.0)
[2023-11-08 23:01] LABS: BASO % 0.2 % (0.0-1.0); EOS % 0.1 % (0.0-3.0); HEMATOCRIT 61.9 % (36.0-47.0); HEMOGLOBIN 18.4 g/dl (12.0-15.5); LYMPH # 0.3 10^3/uL (1.5-5.0); LYMPH % 1.6 % (24.0-44.0); MEAN CORPUSCULAR HEMOGLOBIN 30.5 pg (27.0-33.0); MEAN CORPUSCULAR HGB CONC 29.7 g/dl (32.0-36.5); MEAN CORPUSCULAR VOLUME 102.5 fl (80.0-96.0); MONO # 1.6 10^3/uL (0.0-0.8); MONO % 8.8 % (2.0-8.0); NEUTROPHILS # 16.4 10^3/uL (1.5-8.5); NEUTROPHILS % 88.1 % (36.0-66.0); PLATELET COUNT, AUTOMATED 294 10^3/uL (150-450); RED BLOOD COUNT 6.04 10^6/uL (4.00-5.40); WHITE BLOOD COUNT 18.6 10^3/uL (4.0-10.0)
[2023-11-08 23:25] LABS: ABG BASE EXCESS 5.3 (-2.0-2.0); ABG HCO3 37.2 MMOL/L (22.0-26.0); ABG O2 SATURATION 95.6 % (95.0-99.0); ABG PARTIAL PRESSURE CO2 88.5 mmHg (35.0-45.0); ABG PARTIAL PRESSURE O2 82.1 mmHg (75.0-100.0); ABG STANDARD HCO3 29.1 MMOL/L. (22.0-26.0); ABG pH (ARTERIAL) 7.242 UNITS (7.350-7.450)
[2023-11-08] MEDS: methylPREDNISolone 125MG 2ML VIAL IV ONE (23:31)
[2023-11-08 23:42] LABS: ETHYL ALCOHOL (ETHANOL) 0.006 % (0.000-0.010)
[2023-11-08 23:50] LABS: ALBUMIN 3.5 G/DL (3.2-5.2); ALKALINE PHOSPHATASE 118 U/L (46-116); ALT/SGPT 53 U/L (7.0-40); AST/SGOT 53 U/L (<34); BILIRUBIN,DIRECT 0.4 MG/DL (<0.4); BILIRUBIN,TOTAL 1.2 MG/DL (0.3-1.2); BLOOD UREA NITROGEN 24 MG/DL (9-23); CALCIUM LEVEL 8.5 MG/DL (8.3-10.6); CARBON DIOXIDE LEVEL > 40.0 MMOL/L (20-31); CHLORIDE LEVEL 96 MMOL/L (98-107); CK-MB VALUE MASS 3.1 NG/ML (<3.6); CPK CREATINE PHOSPHOKINASE 82 U/L (34-145); CREATININE FOR GFR 0.37 MG/DL (0.55-1.30); GLOMERULAR FILTRATION RATE > 60.0 (>39); GLUCOSE, FASTING 196 MG/DL (74-106); MB/CK RELATIVE INDEX 3.78 (< OR =4); POTASSIUM SERUM 5.1 MMOL/L (3.5-5.1); SODIUM LEVEL 141 MMOL/L (136-145); TOTAL PROTEIN 6.8 G/DL (5.7-8.2)
[2023-11-08] MEDS: CEFTAROLINE FOSAMIL 600 MG in D5W MINI-BAG PLUS 50 ML IV ONE (23:52)
[2023-11-09] VITALS (20 sets, daily range): BP systolic 100–128; BP diastolic 57–72; TEMP 97–99.1; O2SAT 91–97
[2023-11-09] MEDS ORDERED: ISOVUE-370 76% 100ML VIAL As Ordered ONE (00:05)
[2023-11-09] MEDS ORDERED: FURO20TA2 PO (01:38)
[2023-11-09] MEDS ORDERED: HOME MED LIST COMPLETE! XX SCH (01:40)
[2023-11-09 04:13] LABS: ABG BASE EXCESS 9.5 (-2.0-2.0); ABG HCO3 40.8 MMOL/L (22.0-26.0); ABG O2 SATURATION 97.4 % (95.0-99.0); ABG STANDARD HCO3 33.3 MMOL/L. (22.0-26.0); ABG TOTAL CO2 43.4 MMOL/L (23.0-31.0); ABG pH (ARTERIAL) 7.292 UNITS (7.350-7.450)
[2023-11-09 04:14] LABS: ABG PARTIAL PRESSURE CO2 86.3 mmHg (35.0-45.0)
[2023-11-09 04:30] LABS: BASO % 0.1 % (0.0-1.0); HEMATOCRIT 54.3 % (36.0-47.0); LYMPH # 0.1 10^3/uL (1.5-5.0); LYMPH % 0.7 % (24.0-44.0); MEAN CORPUSCULAR HEMOGLOBIN 30.5 pg (27.0-33.0); MEAN CORPUSCULAR HGB CONC 29.8 g/dl (32.0-36.5); MEAN CORPUSCULAR VOLUME 102.3 fl (80.0-96.0); MONO # 0.6 10^3/uL (0.0-0.8); MONO % 3.4 % (2.0-8.0); NEUTROPHILS # 17.4 10^3/uL (1.5-8.5); NEUTROPHILS % 95.1 % (36.0-66.0); RED BLOOD COUNT 5.31 10^6/uL (4.00-5.40); WHITE BLOOD COUNT 18.3 10^3/uL (4.0-10.0)
[2023-11-09 04:32] LABS: HEMOGLOBIN 16.2 g/dl (12.0-15.5); PLATELET COUNT, AUTOMATED 194 10^3/uL (150-450)
[2023-11-09 04:59] LABS: CK-MB VALUE MASS 2.7 NG/ML (<3.6)
[2023-11-09 05:06] LABS: MB/CK RELATIVE INDEX 8.7 (< OR =4)
[2023-11-09 05:29] LABS: ALBUMIN 2.7 G/DL (3.2-5.2); ALKALINE PHOSPHATASE 94 U/L (46-116); ALT/SGPT 38 U/L (7.0-40); AST/SGOT 28 U/L (<34); BILIRUBIN,TOTAL 0.9 MG/DL (0.3-1.2); BLOOD UREA NITROGEN 24 MG/DL (9-23); CALCIUM LEVEL 7.9 MG/DL (8.3-10.6); CARBON DIOXIDE LEVEL > 40.0 MMOL/L (20-31); CHLORIDE LEVEL 100 MMOL/L (98-107); CREATININE FOR GFR 0.32 MG/DL (0.55-1.30); GLOMERULAR FILTRATION RATE > 60.0 (>39); GLUCOSE, FASTING 134 MG/DL (74-106); POTASSIUM SERUM 4.2 MMOL/L (3.5-5.1); SODIUM LEVEL 142 MMOL/L (136-145); TOTAL PROTEIN 5.3 G/DL (5.7-8.2)
[2023-11-09] MEDS: IPRATROPIUM 0.5MG/ALBUTEROL 2.5MG INH SOL UD 3ML (DUONEB) NEB PRN (05:33)
[2023-11-09] MEDS: LR 1,000 ML IV SCH ×2 (05:59→15:31)
[2023-11-09] MEDS: UNRESOLVED CLARIFICATION ENTRY XX STA (09:33)
[2023-11-09] MEDS: ACETAMINOPHEN 650MG SUPP PR ONE (09:33)
[2023-11-09] MEDS: ENOXAPARIN 40MG/0.4ML SYRINGE (J1650 PER 10MG) SC SCH (09:36)
[2023-11-09] MEDS: CEFTAROLINE FOSAMIL 600 MG in D5W MINI-BAG PLUS 50 ML IV SCH (12:57)
[2023-11-09] MEDS: CEFTAROLINE FOSAMIL 400 MG in D5W MINI-BAG PLUS 50 ML IV SCH (23:34)
[2023-11-10] VITALS (27 sets, daily range): BP systolic 95–123; BP diastolic 55–75; TEMP 97.2–98; O2SAT 89–97
[2023-11-10 05:34] LABS: BASO % 0.1 % (0.0-1.0); EOS % 0.2 % (0.0-3.0); HEMOGLOBIN 14.5 g/dl (12.0-15.5); LYMPH # 0.7 10^3/uL (1.5-5.0); LYMPH % 6.9 % (24.0-44.0); MEAN CORPUSCULAR HEMOGLOBIN 30.2 pg (27.0-33.0); MEAN CORPUSCULAR HGB CONC 30.2 g/dl (32.0-36.5); MONO # 1.4 10^3/uL (0.0-0.8); MONO % 12.8 % (2.0-8.0); NEUTROPHILS # 8.6 10^3/uL (1.5-8.5); NEUTROPHILS % 79.5 % (36.0-66.0); PLATELET COUNT, AUTOMATED 202 10^3/uL (150-450); WHITE BLOOD COUNT 10.8 10^3/uL (4.0-10.0)
[2023-11-10 05:56] LABS: BLOOD UREA NITROGEN 19 MG/DL (9-23); CARBON DIOXIDE LEVEL > 40.0 MMOL/L (20-31); CHLORIDE LEVEL 97 MMOL/L (98-107); CREATININE FOR GFR 0.26 MG/DL (0.55-1.30); GLOMERULAR FILTRATION RATE > 60.0 (>39); GLUCOSE, FASTING 76 MG/DL (74-106); MAGNESIUM LEVEL 1.4 MG/DL (1.8-2.4); PHOSPHORUS LEVEL 2.3 MG/DL (2.4-5.1); POTASSIUM SERUM 3.7 MMOL/L (3.5-5.1); SODIUM LEVEL 141 MMOL/L (136-145)
[2023-11-10] MEDS ORDERED: GLUCAGON INJ 1MG VIAL SC PRN (06:00)
[2023-11-10] MEDS: DEXTROSE 50% 50ML SYRINGE IV PRN (06:24)
[2023-11-10] MEDS: MAGNESIUM OXIDE 400MG TAB (MAG-OX) PO ONE (07:00)
[2023-11-10] MEDS: MAG SULF 1GM/100ML (MAG RUN) 1 GM in IV 1 EA IV SCH (09:04)
[2023-11-10] MEDS: ENOXAPARIN 30MG/0.3ML SYRINGE (J1650 PER 10MG) SC SCH (09:05)
[2023-11-10] MEDS: POTASSIUM PHOSPHATE INJ 15 MMOL in D5W 250 ML IV ONE (10:44)
[2023-11-11] VITALS (31 sets, daily range): BP systolic 122–132; BP diastolic 62–72; TEMP 97.2–98.2; O2SAT 85–100
[2023-11-11 05:56] LABS: HEMATOCRIT 48.8 % (36.0-47.0); HEMOGLOBIN 14.9 g/dl (12.0-15.5); MEAN CORPUSCULAR HEMOGLOBIN 30.2 pg (27.0-33.0); MEAN CORPUSCULAR HGB CONC 30.5 g/dl (32.0-36.5); MEAN CORPUSCULAR VOLUME 98.8 fl (80.0-96.0); PLATELET COUNT, AUTOMATED 258 10^3/uL (150-450); RED BLOOD COUNT 4.94 10^6/uL (4.00-5.40); WHITE BLOOD COUNT 9.2 10^3/uL (4.0-10.0)
[2023-11-11 06:24] LABS: BLOOD UREA NITROGEN 13 MG/DL (9-23); CALCIUM LEVEL 7.5 MG/DL (8.3-10.6); CARBON DIOXIDE LEVEL > 40.0 MMOL/L (20-31); CHLORIDE LEVEL 100 MMOL/L (98-107); CREATININE FOR GFR 0.28 MG/DL (0.55-1.30); GLOMERULAR FILTRATION RATE > 60.0 (>39); GLUCOSE, FASTING 92 MG/DL (74-106); MAGNESIUM LEVEL 1.8 MG/DL (1.8-2.4); PHOSPHORUS LEVEL 2.4 MG/DL (2.4-5.1); SODIUM LEVEL 143 MMOL/L (136-145)
[2023-11-11 08:51] LABS: ABG HCO3 41.4 MMOL/L (22.0-26.0); ABG O2 SATURATION 90.7 % (95.0-99.0); ABG PARTIAL PRESSURE O2 57.6 mmHg (75.0-100.0); ABG STANDARD HCO3 35.6 MMOL/L. (22.0-26.0); ABG TOTAL CO2 43.7 MMOL/L (23.0-31.0); ABG pH (ARTERIAL) 7.369 UNITS (7.350-7.450)
[2023-11-11 08:57] LABS: ABG PARTIAL PRESSURE CO2 73.5 mmHg (35.0-45.0)
[2023-11-11] MEDS: ACETAMINOPHEN TAB 650MG DOSE (2X325MG) PO PRN (09:32)
[2023-11-12] VITALS: BP 118/68; TEMP 98; O2SAT 92; O2SAT 98
[2023-11-12 01:00] VITALS: O2SAT 96
[2023-11-12 04:00] VITALS: BP 124/70; TEMP 97.7; O2SAT 93
[2023-11-12 07:19] VITALS: BP 118/80; TEMP 99.6; O2SAT 95
[2023-11-12 11:39] VITALS: BP 133/75; TEMP 98.3; O2SAT 88
[2023-11-12] MEDS ORDERED: DOXY-444 PO (12:34)
[2023-11-12] MEDS ORDERED: CEFD300CAP PO (12:34)
[2023-11-12] MEDS ORDERED: PROBCAP14 PO (12:34)
[2023-11-12] MEDS ORDERED: ALBU2.5V10 NEB (12:36)
== END 2023-11-12 17:00 | disposition home health service (06) | DRG 193 ==
LOC: M ED 21:05 → M ED INP 11-09 01:47 → M ICU 11-09 06:30 → M PCU 11-09 17:00
PROVIDERS: ADMIT Internal Medicine; ATTEND Internal Medicine Nephrology
DX: J18.9 Pneumonia, unspecified organism (principal); J96.22 Acute and chronic respiratory failure with hypercapnia; G93.41 Metabolic encephalopathy; J96.21 Acute and chronic respiratory failure with hypoxia; E43 Unspecified severe protein-calorie malnutrition; Z68.1 Body mass index [BMI] 19.9 or less, adult; I50.32 Chronic diastolic (congestive) heart failure; I27.20 Pulmonary hypertension, unspecified; F03.90 Unspecified dementia, unspecified severity, without behavioral disturbance, psychotic disturbance, mood disturbance, and anxiety; J45.909 Unspecified asthma, uncomplicated; S42.202D Unspecified fracture of upper end of left humerus, subsequent encounter for fracture with routine healing; D75.1 Secondary polycythemia; M40.204 Unspecified kyphosis, thoracic region; I27.81 Cor pulmonale (chronic); R91.8 Other nonspecific abnormal finding of lung field; Z88.0 Allergy status to penicillin; Z88.8 Allergy status to other drugs, medicaments and biological substances; Z79.899 Other long term (current) drug therapy

== ENCOUNTER → 2023-11-21 | Outpatient (CLI) | payer MEDICARE ==
[~2023-11-21] MED LIST changes: +CEFD300CAP PO; +DOXY-444 PO; +FURO20TA2 PO; +PROBCAP14 PO
== END ==
LOC: M SOG 07:53
PROVIDERS: ATTEND Orthopaedic Surgery Hand Surgery
DX: S42.202A Unspecified fracture of upper end of left humerus, initial encounter for closed fracture (principal); Y93.9 Activity, unspecified; Y92.9 Unspecified place or not applicable

== ENCOUNTER → 2023-12-05 | Outpatient (CLI) | payer MEDICARE | LOC: M SOG 08:12 | PROVIDERS: ATTEND Physician Assistant | DX: S42.212D Unspecified displaced fracture of surgical neck of left humerus, subsequent encounter for fracture with routine healing (principal); Y93.9 Activity, unspecified; Y92.9 Unspecified place or not applicable ==

== ENCOUNTER → 2023-12-15 | Outpatient (CLI) | payer MEDICARE | LOC: M PLARAD 10:57 | PROVIDERS: ATTEND Internal Medicine Pulmonary Disease | DX: R91.8 Other nonspecific abnormal finding of lung field (principal) | CPT/HCPCS: 78815; A9552 ==

== ENCOUNTER → 2024-01-05 | Outpatient (CLI) | payer MEDICARE ==
[~2024-01-05] MED LIST changes: +DOXY-440 PO; -DOXY-444 PO
== END ==
LOC: M SOG 10:33
PROVIDERS: ATTEND Physician Assistant
DX: S42.212D Unspecified displaced fracture of surgical neck of left humerus, subsequent encounter for fracture with routine healing (principal); M54.50 Low back pain, unspecified; S32.050S Wedge compression fracture of fifth lumbar vertebra, sequela

== ENCOUNTER → 2024-01-20 | Outpatient (CLI) | payer MEDICARE | LOC: M WHC 12:39 | PROVIDERS: ATTEND Physician Assistant | DX: M81.0 Age-related osteoporosis without current pathological fracture (principal); M54.50 Low back pain, unspecified ==

== ENCOUNTER → 2024-02-05 | Outpatient (CLI) | payer MEDICARE | LOC: M SOG 07:53 | PROVIDERS: ATTEND Physician Assistant | DX: S42.212D Unspecified displaced fracture of surgical neck of left humerus, subsequent encounter for fracture with routine healing (principal) ==

== ENCOUNTER → 2024-02-06 | Outpatient (CLI) | payer MEDICARE | LOC: M PLARAD 10:22 | PROVIDERS: ATTEND Physician Assistant | DX: Z53.9 Procedure and treatment not carried out, unspecified reason (principal) ==